=== PATIENT | male | born 1995 | race Caucasian/White ===

== ENCOUNTER 2023-05-03 11:41 | Day surgery (SDC) | payer OTHER ==
[2023-05-03 12:03] VITALS: BMI 23.6
[2023-05-03] MEDS ORDERED: ceFAZolin SODIUM 1 GM VIAL ONE (12:48)
[2023-05-03] MEDS ORDERED: PROPOFOL 40 ML ONE (12:48)
[2023-05-03] MEDS ORDERED: MIDAZOLAM HCL 2 MG/2 ML SINGLE DOSE VIAL ONE (12:49)
[2023-05-03] MEDS ORDERED: BUPIVACAINE HCL/PF 0.25% (2.5MG/ML) 10 ML VIAL ONE (12:54)
[2023-05-03] MEDS ORDERED: BUPIVACAINE HCL/PF 0.5% (5MG/ML) 10 ML VIAL ONE (12:55)
[2023-05-03] MEDS ORDERED: LIDOCAINE HCL 2% (20ML MULTI-DOSE VIAL) ONE (12:55)
[2023-05-03] MEDS ORDERED: BUPIVACAINE HCL/PF 0.25% (2.5MG/ML) 10 ML VIAL IJ ONE (13:58)
[2023-05-03] MEDS ORDERED: oxyCODONE HCL 5 MG TABLET PO PRN (14:20)
[2023-05-03] MEDS ORDERED: KETOROLAC TROMETHAMINE 30 MG/1 ML VIAL IM ONE (14:22)
[2023-05-03] MEDS ORDERED: LACTATED RINGERS SOLUTION 1,000 ML IV SCH (14:30)
[2023-05-03] MEDS ORDERED: FENTANYL CITRATE/PF 50 MCG/ML VIAL ONE (14:33)
[2023-05-03] MEDS ORDERED: oxyCODONE HCL 5 MG TABLET ONE (15:16)
[2023-05-03 15:33] VITALS: RESP 19; TEMP 97.4
[2023-05-03 15:37] VITALS: BP 116/67; PULSE 53
== END 2023-05-03 16:15 | disposition home or self-care (01) ==
LOC: FASU 11:41
PROVIDERS: ATTEND Orthopaedic Surgery Hand Surgery
PROC: 0LQ70ZZ Repair Right Hand Tendon, Open Approach (ICD-10-PCS; principal; 2023-05-03 13:35)
DX: S66.221A Laceration of extensor muscle, fascia and tendon of right thumb at wrist and hand level, initial encounter (principal); X58.XXXA Exposure to other specified factors, initial encounter; Y93.9 Activity, unspecified; Y92.9 Unspecified place or not applicable
CPT/HCPCS: 94760